=== PATIENT | female | born 2000 | race Caucasian/White ===

== ENCOUNTER 2022-06-22 17:29 | Emergency (ER) | payer OTHER ==
[2022-06-22 17:34] VITALS: BP 107/71; PULSE 94; RESP 18; TEMP 98.4; BMI 33.4
[2022-06-22] MEDS ORDERED: SODIUM CHLORIDE 0.9% 500 ML INFUS.BAG IV ONE (18:34)
[2022-06-22] MEDS ORDERED: ACETAMINOPHEN 1000 MG/100 ML BAG IVPB ONE (18:34)
[2022-06-22] MEDS ORDERED: DEXAMETHASONE SOD PHOSPHATE 10 MG/1 ML VIAL IVPUSH ONE (18:34)
[2022-06-22] MEDS ORDERED: DEXAMETHASONE SOD PHOSPHATE 10 MG/1 ML VIAL ONE (18:41)
[2022-06-22] MEDS ORDERED: ACETAMINOPHEN INJECTION 100 ML IVPB ONE (18:41)
[2022-06-22 20:13] LABS: BASO % 0.4 % (0-2.0); HEMOGLOBIN 12.8 GM/dL (10.7-15.3); MEAN PLT VOLUME 9.1 fl (7.5-11.1); MONO % 6.4 % (3.8-10.2); RDW 13.5 % (11.6-15.6)
[2022-06-22 20:15] LABS: EOS % 0.7 % (0-4.5); HEMATOCRIT 38.5 % (32.4-45.2); LYMPH % 25.3 % (8-40); MCH 29.1 pg (25.7-33.7); MCHC 33.2 g/dl (32.0-36.0); MEAN CELL VOLUME 87.8 fl (80-96); NEUT % 67.2 % (42.8-82.8); PLATELET COUNT 319 10^3/uL (134-434); RBC 4.39 M/mm3 (3.60-5.2); WHITE BLOOD COUNT 8.6 K/mm3 (4.0-10.0)
[2022-06-22 20:35] LABS: CHLORIDE 105 mmol/L (98-107); SODIUM 137 mmol/L (136-145)
[2022-06-22 20:38] LABS: CALCIUM 9.6 mg/dL (8.5-10.1)
[2022-06-22 20:39] LABS: ALBUMIN 4.3 g/dl (3.4-5.0); ANION GAP 8 MMOL/L (8-16); BLOOD UREA NITROGEN 10.9 mg/dL (7-18); CO2 25 mmol/L (21-32); GLUCOSE,RANDOM 80 mg/dL (74-106)
[2022-06-22 20:42] LABS: CREATININE 0.6 mg/dL (0.55-1.3); SGOT/AST 24 U/L (15-37); SGPT/ALT 30 U/L (13-61)
[2022-06-22 20:44] LABS: BILIRUBIN,TOTAL 0.2 mg/dL (0.2-1); TOT PROT 8.1 g/dl (6.4-8.2)
[2022-06-22 20:45] LABS: ALK PHOS 105 U/L (45-117)
== END 2022-06-22 22:18 | disposition home or self-care (01) ==
LOC: JER 17:29
PROC: 3E0333Z Introduction of Anti-inflammatory into Peripheral Vein, Percutaneous Approach (ICD-10-PCS; principal; 2022-06-22)
DX: R07.1 Chest pain on breathing (principal)
CPT/HCPCS: 36415; 71046-TC-FY; 80053; 84484; 85025; 93005; 93010; 99285-25; J1100

== ENCOUNTER 2022-12-07 17:52 | Emergency (ER) | payer OTHER ==
[2022-12-07 18:01] VITALS: BP 140/85; PULSE 110; RESP 20; TEMP 98.2; BMI 36.8
[2022-12-07] MEDS ORDERED: AMOXICILLIN 500 MG CAPSULE (FP) PO ONE (20:05)
[2022-12-07] MEDS ORDERED: AMOXICILLIN 250 MG CAPSULE ONE (20:06)
== END 2022-12-07 20:20 | disposition home or self-care (01) ==
LOC: JERFT 17:52
DX: H66.002 Acute suppurative otitis media without spontaneous rupture of ear drum, left ear (principal)
CPT/HCPCS: 0241U-QW; 99283-25

== ENCOUNTER 2023-02-27 02:12 | Emergency (ER) | payer OTHER ==
[2023-02-27 02:20] VITALS: BP 109/80; PULSE 101; RESP 16; TEMP 98.5; BMI 38.5
[2023-02-27] MEDS ORDERED: ACETAMINOPHEN 325 MG TABLET (FP) PO ONE (02:35)
[2023-02-27] MEDS ORDERED: ACETAMINOPHEN 325 MG TABLET (FP) ONE (02:49)
== END 2023-02-27 04:56 | disposition home or self-care (01) ==
LOC: JER 02:12
DX: R07.89 Other chest pain (principal); M54.2 Cervicalgia; R00.2 Palpitations; F41.9 Anxiety disorder, unspecified; R51.9 Headache, unspecified; R20.2 Paresthesia of skin
CPT/HCPCS: 36415; 71045-TC-FY; 84484; 93005; 93010; 99285-25

== ENCOUNTER 2023-06-30 15:01 | Emergency (ER) | payer OTHER ==
[2023-06-30 15:10] VITALS: BP 123/73; PULSE 96; RESP 20; TEMP 98.4; BMI 43.5
[2023-06-30] MEDS ORDERED: ACETAMINOPHEN 1000 MG/100 ML BAG IVPB ONE (15:58)
[2023-06-30] MEDS ORDERED: SODIUM CHLORIDE 1,000 ML IV STA ×2 (15:58→18:40)
[2023-06-30] MEDS ORDERED: ONDANSETRON 4 MG/2 ML VIAL IVPUSH ONE (15:59)
[2023-06-30] MEDS ORDERED: ONDANSETRON 4 MG/2 ML VIAL ONE (16:10)
[2023-06-30] MEDS ORDERED: ACETAMINOPHEN INJECTION 100 ML IVPB ONE (16:10)
[2023-06-30 16:57] LABS: BASO % 0.9 % (0-2.0); EOS % 0.8 % (0-4.5); HEMATOCRIT 37.5 % (32.4-45.2); HEMOGLOBIN 11.9 GM/dL (10.7-15.3); LYMPH % 16.5 % (8-40); MCHC 31.7 g/dl (32.0-36.0); MEAN CELL VOLUME 78.9 fl (80-96); MEAN PLT VOLUME 8.8 fl (7.5-11.1); MONO % 5.5 % (3.8-10.2); NEUT % 76.3 % (42.8-82.8); PLATELET COUNT 333 10^3/uL (134-434); RBC 4.75 M/mm3 (3.60-5.2); RDW 15.9 % (11.6-15.6)
[2023-06-30 17:01] LABS: EPI CELLS >36 /uL (0-25.1); HYALINE CASTS 0 /uL (0-3.1); URINE APPEARANCE CLEAR; URINE BACTERIA 888 /uL (0-1359); URINE BILIRUBIN NEGATIVE (NEGATIVE); URINE COLOR YELLOW; URINE GLUCOSE (UA) NEGATIVE (NEGATIVE); URINE KETONE NEGATIVE (NEGATIVE); URINE LEUK ESTERASE 2+ (NEGATIVE); URINE NITRITE NEGATIVE (NEGATIVE); URINE PROTEIN NEGATIVE (NEGATIVE); URINE UROBILINOGEN 0.2 mg/dL (0.2-1.0); URINE WBC 41 /uL (0-25.8)
[2023-06-30 17:02] LABS: HCG,QUALITATIVE URINE Negative
[2023-06-30 17:12] LABS: INR 1.12 (0.83-1.09)
[2023-06-30 17:14] LABS: POTASSIUM 3.8 mmol/L (3.5-5.1)
[2023-06-30 17:15] LABS: ACTIVATED PTT 31.4 SECONDS (25.2-36.5)
[2023-06-30 17:16] LABS: CALCIUM 9.3 mg/dL (8.5-10.1)
[2023-06-30 17:17] LABS: ALBUMIN 3.5 g/dl (3.4-5.0)
[2023-06-30 17:20] LABS: CREATININE 0.7 mg/dL (0.55-1.3)
[2023-06-30 17:21] LABS: BILIRUBIN,TOTAL 0.4 mg/dL (0.2-1); TOT PROT 7.4 g/dl (6.4-8.2)
[2023-06-30 17:25] LABS: BLOOD UREA NITROGEN 11.8 mg/dL (7-18)
[2023-06-30 17:52] LABS: URINE RBC 18.4 /uL (0-23.9)
[2023-06-30] MEDS ORDERED: CEFTRIAXONE 1 GM in DEXTROSE 5%-WATER - 100 ML IVPB ONE (18:29)
[2023-06-30] MEDS ORDERED: CEFTRIAXONE 1 GM/50 ML BAG ONE (19:31)
== END 2023-06-30 20:31 | disposition home or self-care (01) ==
LOC: JER 15:01
PROC: 3E03329 Introduction of Other Anti-infective into Peripheral Vein, Percutaneous Approach (ICD-10-PCS; principal; 2023-06-30)
PROC: 3E033NZ Introduction of Analgesics, Hypnotics, Sedatives into Peripheral Vein, Percutaneous Approach (ICD-10-PCS; 2023-06-30)
PROC: 3E033GC Introduction of Other Therapeutic Substance into Peripheral Vein, Percutaneous Approach (ICD-10-PCS; 2023-06-30)
PROC: 3E0337Z Introduction of Electrolytic and Water Balance Substance into Peripheral Vein, Percutaneous Approach (ICD-10-PCS; 2023-06-30)
DX: R10.30 Lower abdominal pain, unspecified (principal); M54.9 Dorsalgia, unspecified; K52.9 Noninfective gastroenteritis and colitis, unspecified; N39.0 Urinary tract infection, site not specified; R11.2 Nausea with vomiting, unspecified; R31.9 Hematuria, unspecified; R35.0 Frequency of micturition; R39.15 Urgency of urination
CPT/HCPCS: 36415; 74176-TC; 80053; 81003; 84703; 85025; 85610; 85730; 86850; 86900; 86901; 87086; 99284-25

== ENCOUNTER 2023-08-23 04:49 | Day surgery (SDC) | payer OTHER ==
[~2023-08-23 04:49] MED LIST: LACTATED RINGERS SOLUTION 1,000 ML IV SCH; ONDANSETRON 4 MG/2 ML VIAL IVPUSH PRN; PROMETHAZINE HCL 25 MG/1 ML VIAL IVPB PRN; oxyCODONE HCL 5 MG TABLET PO PRN
[2023-08-23] MEDS ORDERED: DEXAMETHASONE SOD PHOSPHATE 4 MG/1 ML VIAL ONE (08:07)
[2023-08-23] MEDS ORDERED: KETOROLAC TROMETHAMINE 30 MG/1 ML VIAL ONE (08:07)
[2023-08-23] MEDS ORDERED: PROPOFOL 40 ML ONE (08:07)
[2023-08-23] MEDS ORDERED: ONDANSETRON 4 MG/2 ML VIAL ONE (08:07)
[2023-08-23] MEDS ORDERED: ceFAZolin SODIUM 1 GM VIAL ONE (08:12)
[2023-08-23 08:54] VITALS: BMI 36.4
== END 2023-08-23 09:30 | disposition home or self-care (01) ==
LOC: JASU-SURG 04:49
PROVIDERS: ATTEND Obstetrics & Gynecology
DX: Z53.8 Procedure and treatment not carried out for other reasons (principal)